=== PATIENT | female | born 1980 | race American Indian/Alaskan Native ===

== ENCOUNTER 2017-08-20 19:18 | Emergency (ER) | payer BC, OTHER ==
[2017-08-20 19:53] VITALS: BP 126/75
[2017-08-20] MEDS ORDERED: MOTRIN PO ONE (22:35)
--- NOTE | 2017-08-20 22:43 | Emergency Department Report ---
<TERESA BARNES - Last Filed: 08/21/17 00:54> ED Lower Extremity HPI - General Chief Complaint: Extremity Injury, Lower Stated Complaint: RT LEG EDEMA Time Seen by Provider: 08/20/17 21:22 Source: patient Mode of arrival: Ambulatory Limitations: No Limitations - History of Present Illness Initial Comments: This is a 37-year-old female nontoxic, well nourished in appearance, no acute signs of distress presents to the ED with c/o of right knee pain and ecchymosis x4 days. Patient stated she was seen by her PCP and was instructed to come to the ED to rule out DVT. Patient stated she was working 4 days ago and was walking a lot and developed pain in the lateral knee area and then worsened over few days and then developed bruising yesterday. Patient denies any trauma to the area. Patient denies any calf pain or tenderness. Patient denies any trauma. Patient denies any other symptoms. Patient denies any chest pain, fever , chills, headache, nausea, vomiting, chest pain, shortness of breathe, numbness or tingling. Patient denies any recent travels, long car rides, or recent hospital stays. Patient denies any history of DVT/SVT. Patient states allergies to Percocet. PMH includes GERD. MD Complaint: knee injury -: days(s) (4) Injury: Knee: Left Place: work Severity: mild Severity scale (0 -10): 8 Improves With: nothing Worsens With: nothing Associated Symptoms: ambulatory. denies: snap/pop sensation, swelling, numbness , tingling, unable to bear weight, able to partially bear weight - Related Data Home Medications Medication Instructions Recorded Confirmed Last Taken Omeprazole [PriLOSEC] 11/25/13 11/25/13 Unknown Previous Rx's Medication Instructions Recorded Last Taken Type Esomeprazole Magnesium [Nexium] 40 mg PO QDAY #30 capsule. 11/25/13 Unknown Rx Gi Cocktail ( 5mg, Maalox 1 dose PO Q4H PRN #20 dose 11/25/13 Unknown Rx 20cc,2% Lidocaine Viscous 5cc) Equals One Dose Cephalexin [Keflex] 500 mg PO Q8HR #21 cap 08/21/17 Unknown Rx Fluconazole [Diflucan] 150 mg PO ONCE #1 tablet 08/21/17 Unknown Rx Ibuprofen [Motrin] 600 mg PO Q8H PRN #30 tablet 08/21/17 Unknown Rx Allergies Allergy/AdvReac Type Severity Reaction Status Date / Time acetaminophen [From Percocet] Allergy Shortness Verified 11/25/13 15:51 of Breath oxycodone HCl [From Percocet] Allergy Shortness Verified 11/25/13 15:51 of Breath ED Review of Systems ROS: Stated complaint: RT LEG EDEMA Other details as noted in HPI Constitutional: denies: chills, fever Eyes: denies: eye pain, eye discharge, vision change ENT: denies: ear pain, throat pain Respiratory: denies: cough, shortness of breath, wheezing Cardiovascular: denies: chest pain, palpitations Endocrine: no symptoms reported Gastrointestinal: denies: abdominal pain, nausea, diarrhea Genitourinary: denies: urgency, dysuria, discharge Musculoskeletal: denies: back pain, joint swelling, arthralgia Skin: denies: rash, lesions Neurological: denies: headache, weakness, paresthesias Psychiatric: denies: anxiety, depression Hematological/Lymphatic: denies: easy bleeding, easy bruising ED Past Medical Hx - Past Medical History Previous Medical History?: Yes Hx GERD: Yes Additional medical history: cardiac arrhy, ovarian cyst - Surgical History Past Surgical History?: Yes Additional Surgical History: cystectomy - Social History Smoking Status: Never Smoker Substance Use Type: None - Medications Home Medications: Home Medications Medication Instructions Recorded Confirmed Last Taken Type Esomeprazole Magnesium [Nexium] 40 mg PO QDAY #30 capsule. 11/25/13 Unknown Rx Gi Cocktail ( 5mg, Maalox 1 dose PO Q4H PRN #20 dose 11/25/13 Unknown Rx 20cc,2% Lidocaine Viscous 5cc) Equals One Dose Omeprazole [PriLOSEC] 11/25/13 11/25/13 Unknown History Cephalexin [Keflex] 500 mg PO Q8HR #21 cap 08/21/17 Unknown Rx Fluconazole [Diflucan] 150 mg PO ONCE #1 tablet 08/21/17 Unknown Rx Ibuprofen [Motrin] 600 mg PO Q8H PRN #30 tablet 08/21/17 Unknown Rx ED Physical Exam - General Limitations: No Limitations General appearance: alert, in no apparent distress - Head Head exam: Present: atraumatic, normocephalic - Eye Eye exam: Present: normal appearance Pupils: Present: normal accommodation - ENT ENT exam: Present: normal exam, mucous membranes moist - Neck Neck exam: Present: normal inspection, full ROM. Absent: tenderness, meningismus, lymphadenopathy - Respiratory Respiratory exam: Present: normal lung sounds bilaterally. Absent: respiratory distress, wheezes, rales, rhonchi, stridor - Cardiovascular Cardiovascular Exam: Present: regular rate, normal rhythm, normal heart sounds. Absent: bradycardia, tachycardia, irregular rhythm, systolic murmur, diastolic murmur, rubs, gallop - GI/Abdominal GI/Abdominal exam: Present: soft, normal bowel sounds - Extremities Exam Extremities exam: Present: normal inspection, full ROM, tenderness, normal capillary refill. Absent: pedal edema, joint swelling, calf tenderness - Expanded Lower Extremity Exam Right Hip exam: Present: normal inspection, full ROM Upper Leg exam: Present: normal inspection, full ROM Knee exam: Present: normal inspection, full ROM, tenderness, ecchymosis, full knee extension. Absent: swelling, abrasion, laceration, deformity, crepidus, dislocation, erythema, effusion, pain w/ pronation/supination, posterior draw sign, pain/laxity with valgus, pain/laxity with varus Lower Leg exam: Present: normal inspection, full ROM. Absent: tenderness, swelling, abrasion, laceration, deformity, crepidus, dislocation, erythema, palpable cord, Lenin's sign Ankle exam: Present: normal inspection, full ROM Foot/Toe exam: Present: normal inspection, full ROM Neuro vascular tendon exam: Present: no vascular compromise. Absent: pulse deficit, abnormal cap refill, motor deficit, sensory deficit, tendon deficit, extremity cold to touch, pallor, abnormal 2-point discrimination, decreased fine /light touch, foot drop, peroneal nerve deficit, significant pain with passive ROM of distal joint Gait: Positive: observed and normal 1 - pain and ecchymosis - Back Exam Back exam: Present: normal inspection, full ROM - Neurological Exam Neurological exam: Present: alert, oriented X3, normal gait - Psychiatric Psychiatric exam: Present: normal affect, normal mood - Skin Skin exam: Present: warm, dry, intact, normal color. Absent: rash ED Course Vital Signs 08/20/17 19:18 Temperature 99.1 F Pulse Rate 78 Respiratory 18 Rate Blood Pressure 126/75 O2 Sat by Pulse 99 Oximetry - Reevaluation(s) Reevaluation #1: 08/20/17 22:45 Patient is speaking in full sentences with no signs of distress noted. - Consultations Consultation #1: 08/21/17 00:22 Patient has been consulted with Dr. Darling about patient history, physical exam , and labs and examined patient and agrees to ED plan of care and stated discharge with antibiotics and doppler study tomorrow morning. ED Lower Extremity MDM - Medical Decision Making This is a 37-year-old female that presents with left knee pain. Patient is stable and was examined by me. Xray has been obtained and dictated by the radiologist. A doppler US of RLE has not been obtained to r/o DVT/SVT due to no tech. Dr. Darling was consulted and examined patient and stated no signs of DVT/ SVT but to have patient come back tomorrow morning for doppler studies. Negative D-dimmer. There is no joint swelling or joint redness. No signs of cellulitis. Patient is notified of the xray results with no questions noted as noted by the patient. Patient did received Motrin in the ED. Patient was referred to Follow-up with a primary care doctor in 3-5 days or if symptoms worsen and continue return to emergency room as soon as possible. At time of discharge, the patient does not seem toxic or ill in appearance. No acute signs of distress noted. Patient agrees to discharge treatment plan of care. No further questions noted by the patient. Critical care attestation.: If time is entered above; I have spent that time in minutes in the direct care of this critically ill patient, excluding procedure time. ED Disposition Disposition: DC-01 TO HOME OR SELFCARE Is pt being admited?: No Does the pt Need Aspirin: No Condition: Stable Instructions: Sulfamethoxazole/Trimethoprim (By mouth), Ibuprofen (By mouth), Knee Pain (ED) Additional Instructions: Return to radiology department at 6 AM with the referreal to get a Doppler ultrasound to examine for DVT/SVT. Follow-up with a primary care doctor in 3-5 days or if symptoms worsen and continue return to emergency room as soon as possible. Prescriptions: Cephalexin [Keflex] 500 mg PO Q8HR #21 cap Fluconazole [Diflucan] 150 mg PO ONCE #1 tablet Ibuprofen [Motrin] 600 mg PO Q8H PRN #30 tablet PRN Reason: Pain Referrals: DOMINIQUE NELSON MD [Primary Care Provider] - 3-5 Days PRIMARY CARE, [Referring] - 3-5 Days [facility] [Outside] - 3-5 Days [facility] [Outside] - 3-5 Days Forms: Work/School Release Form(ED) <AURELIA BAEZ - Last Filed: 08/21/17 18:19> ED Lower Extremity MDM - Medical Decision Making Patient return to the ER stating she is allergic to sulfa drugs. This was not listed on her initial triage. Medication changed to Keflex 3 times a day 7 days
--- NOTE | 2017-08-20 22:58 | XRay Report ---
FINAL REPORT EXAM: XR KNEE 3V RT HISTORY: RIGHT knee pain TECHNIQUE: 3 views of right knee. PRIORS: None. FINDINGS: No apparent fracture or dislocation. Knee joint spaces maintained. Mild degenerative change in the proximal tibiofibular articulation. Soft tissues grossly unremarkable. IMPRESSION: 1. No acute osseous abnormality.
== END 2017-08-21 01:15 | disposition home or self-care (01) ==
LOC: ED 19:18
DX: S80.02XA Contusion of left knee, initial encounter (principal); K21.9 Gastro-esophageal reflux disease without esophagitis; X58.XXXA Exposure to other specified factors, initial encounter; Y93.89 Activity, other specified; Y92.89 Other specified places as the place of occurrence of the external cause; Y99.8 Other external cause status
CPT/HCPCS: 36415; 85379

== ENCOUNTER 2017-08-21 12:15 | Outpatient (CLI) | payer OTHER | END 2017-08-21 12:16 | disposition home or self-care (01) | LOC: VAS 12:15 | PROVIDERS: ATTEND Registered Nurse | DX: M79.661 Pain in right lower leg (principal); M79.89 Other specified soft tissue disorders ==